=== PATIENT | male | born 1955 | race Two or more races ===

== ENCOUNTER → 2019-01-30 | Outpatient (CLI) | payer OTHER ==
[~2019-01-30] MED LIST: ADULT ASPIRIN81 MG; ATACAND16 MG
== END | disposition home or self-care (01) ==
LOC: RAD 08:13
DX: L97.518 Non-pressure chronic ulcer of other part of right foot with other specified severity (principal)

== ENCOUNTER → 2021-10-08 | Outpatient (CLI) | payer OTHER | END | disposition home or self-care (01) | LOC: RAD 13:52 | PROVIDERS: ATTEND General Practice | DX: M54.50 Low back pain, unspecified (principal); R97.0 Elevated carcinoembryonic antigen [CEA]; R05.9 Cough, unspecified ==

== ENCOUNTER 2022-11-29 13:18 | Outpatient (CLI) | payer OTHER | END 2022-11-29 13:24 | disposition home or self-care (01) | LOC: RAD 13:18 | PROVIDERS: ATTEND General Practice | DX: M54.59 Other low back pain (principal) ==